=== PATIENT | male | born 1975 | race Caucasian/White ===

== ENCOUNTER 2017-05-11 00:01 | Emergency (ER) | payer OTHER ==
[~2017-05-11] VITALS: Ht 177.8 cm; Wt 92.8 kg
[2017-05-11] MEDS ORDERED: MOTRIN800 MG PO (01:45)
[2017-05-11] MEDS ORDERED: PERCOCET 5/31 TABLET PO (01:45)
[2017-05-11 02:22] VITALS: BP 138/70
== END 2017-05-11 02:23 | disposition home or self-care (01) ==
LOC: EME 00:01
DX: S67.192A Crushing injury of right middle finger, initial encounter (principal); W23.0XXA Caught, crushed, jammed, or pinched between moving objects, initial encounter; F17.200 Nicotine dependence, unspecified, uncomplicated
CPT/HCPCS: 99281; 99284